=== PATIENT | male | born 1970 | race Caucasian/White ===

== ENCOUNTER 2017-03-15 11:00 | Outpatient (RCR) | payer MEDICAID, SELFPAY ==
--- NOTE | 2017-02-22 14:57 | HP.OTEVAL_ITS ---
Patient's Visit Information ANGLE GARAY is a 46 year old M, referred to Occupational Therapy by Rosalva Guajardo MD,, with a diagnosis of lesion of ulnar nerve right Upper limb. Date of Evaluation: 02/22/17 Occupational Therapist: Sydney Monet, GIO/Aniket, CHT - Subjective Subjective: Pt has a complex hx of right ulnar fx and radial head replacement- after long recovery and slow healing pt was dx with a lesion of right ulnar nerve. Pt underwent right endoscopic cubital tunneel release with release of forearm amd brachial fascia- transpositon of the nerve with fractional lengthening of the flexor carpi ulnaris muscle on 02-03-17. pt states he is feeling good and is hopeful he can regain his strength and return to work and ADLs at a ind. level - Pain right arm 7 - ROM Elbow: right -5/130 left +10/140 Forearm: right WFL left WNL Wrist: right 65/80 left WNL - Strength Director Of Pre[employer] Research: right 40# left 85# Lateral Pinch: right 10# left 16# Tripod Pinch: right 8# left 16# - Sensation Thumb: right 2.83 Index: right 2.83 Middle: right 2.83 Ring: right 2.83 Little: right 2.83 Other Location: plam of hand 2.83 - Hand/Wrist Evaluation Total Score of Pain & Functional Sections: 62 - Goals Goal:: pt will demo a increase in right entry level drafter strength by 20# to retun pt to PLOF with BADLs and IADLS. pt will demo a increase in lateral/tripod pinch by 4 # to increase ind with BADLs and IADLS Goal:: pt will demo a incrase in right elbow flex/ext by 15 degrees to increase pts ind with BADLS and IADLS Goal:: pt will report pain no greater than 3/10 with use of right UE for BADLS and IADLS Goal:: pt will demo understanding of scar mtg by end of 2nd session. Goal:: pt will report complete ind. with BADls and IADLS without lack of ROM or strength limiting pts. - Rehabilitation General Assessment: Pt underwent right endoscopic cubital tunneel release with release of forearm amd brachial fascia- transpositon of the nerve with fractional lengthening of the flexor carpi ulnaris muscle on 02-03-17. pt states he is feeling good and is hopeful he can regain his strength/ROM and return to work and ADLs at a ind. level Rehabilitation Potential: Good - Anticipated Interventions Anticipated Interventions: A/AAROM/PROM, Strengthening, Scar Care, Triggerpoint Release, Modalities, Orthoses, Ergonomic Education - Visit Plan Frequency: 2x /Week Duration: 4 Weeks TEXT: Thank you for the opportunity to evaluate your patient. For Medicare and Medicare HMO plans, please review the plan of care and approve it. It will need to be FAXED BACK to us at [phone] for Medicare purposes. Please let me know if there are questions or concerns regarding this plan of care. Physician Signature: Date:
--- NOTE | 2017-07-06 13:29 | HP.OTDCSUM_ITS ---
HP - OT D/C Summary It has been my pleasure to treat ANGLE GARAY under orders from Rosalva Guajardo MD, for the diagnosis of lesion of ulnar nerve right Upper limb for a total of 5 visit(s). Please see the following information for a summary of their discharge status. - Objective Objective/Function: right radio station manager strength 50#. right lateral 12#. right tripod 12# - Goals Patient Goals: Regain Strength, Decrease Pain, Improve Fine Motor Skills, Use Hand/Wrist/Arm Normally Again, Decrease Tingling/Numbness, Increase ROM, Be More Independent in ADLS Goal:: pt will demo a increase in right radio station manager strength by 20# to retun pt to PLOF with BADLs and IADLS. pt will demo a increase in lateral/tripod pinch by 4 # to increase ind with BADLs and IADLS Goal:: pt will demo a incrase in right elbow flex/ext by 15 degrees to increase pts ind with BADLS and IADLS Goal:: pt will report pain no greater than 3/10 with use of right UE for BADLS and IADLS Goal:: pt will demo understanding of scar mtg by end of 2nd session. Goal:: pt will report complete ind. with BADls and IADLS without lack of ROM or strength limiting pts. - Plan Plan: D/C - D/C Information If there are questions or concerns regarding this patient's occupational therapy , please fell free to call me at [phone]. Thank you for the referral of this patient. Sincerely, Sydney Monet, OTR/L, CHT
== END 2017-03-15 19:00 | disposition home or self-care (01) ==
LOC: OT 11:00
PROVIDERS: Visit Provider Orthopaedic Surgery Hand Surgery
DX: G56.21 Lesion of ulnar nerve, right upper limb (principal)
CPT/HCPCS: 97110; 97140; 97166

== ENCOUNTER 2018-03-29 16:16 | Emergency (ER) | payer MEDICAID, SELFPAY ==
[2018-02-16 12:52] VITALS: BMI 41.6
[2018-03-29 16:17] VITALS: BP 160/93; PULSE 79; RESP 18; TEMP 36.6; O2SAT 98; BMI 38.7
--- NOTE | 2018-03-29 16:55 | CT_ITS ---
STUDY: CT ABDOMEN AND PELVIS WITHOUT CONTRAST REASON FOR EXAM: Male, 47 years old. Left leg pain RADIATION DOSAGE (If Supplied By Facility): CTDIvol = ( 14.80 ) mGy, DLP = ( 818.55 ) mGycm TECHNIQUE: Transaxial images were obtained from the dome of the diaphragm to the symphysis pubis without oral contrast, and without intravenous contrast. Sagittal and coronal images were reconstructed. Individualized dose optimization techniques were used for this CT. COMPARISON: None. FINDINGS: Body wall soft tissues: No acute process. Osseous structures: Scoliosis. Mild multilevel lumbar spondylosis with evidence of foraminal narrowing due to disc bulging on the right at L4-L5. Inferior chest: Lung bases clear, normal distal esophagus. Prominent coronary calcifications of the proximal LAD and diagonal's. Mild of the RCA. No cardiomegaly or effusion. Hepatobiliary: There appears to be minimal gallbladder sludge. No inflammatory features. Nondilated biliary tree. Normal liver parenchyma. Pancreas: No acute process. Spleen: Normal. Adrenal glands: Normal. Urogenital: Normal right kidney, collecting system and ureter. Left hydronephrosis grade 1, no retained calculi in the left kidney. Hydroureter with calculus of the proximal 3rd of the ureter. The calculus measures approximately 6 x 7 mm. Distal to this the ureter is decompressed. Normal urinary bladder, prostate and seminal vesicles. Pelvic floor and sidewalls and retroperitoneum: No mass or adenopathy. Vasculature: Mild atherosclerosis. Stomach: No acute process. Small bowel and mesentery: No acute process. Large bowel: Normal appendix. Unremarkable large bowel and rectum. Free fluid or free air: Left hydronephrosis and proximal hydroureter associated with a 7 x 6 mm calculus of the proximal 3rd of the left ureter. There are no retained calculi within the kidneys. CT/Abdomen/Pelvis without Cont IMPRESSION: Normal unenhanced CT of the abdomen and pelvis. Electronically Signed: David Brownlee MD at 17:37 EST Tel , Service support ,
--- NOTE | 2018-03-29 16:57 | ED.DCSUM_ITS ---
- ER Visit Summary Date of Service: 03/29/18 Chief Complaint: Left-sided abdominal pain History of Present Illness: The patient is a 47 M presenting with left-sided abdominal pain. He states this started last night. He has had nausea with no vomiting. He denies diarrhea or constipation. Denies urinary complaints. Denies fever. He states he had similar symptoms approximately 1 month ago that went away on their own. He states last night the pain radiated to his groin but this has resolved. Denies other complaints. Physical Examination: Vitals are stable. Patient is afebrile. Alert no acute distress. HEENT exam is unremarkable. Neck is supple. Lungs are clear and equal bilaterally. Heart is regular rate and rhythm. Abdomen is soft left lower quadrant tenderness with no rebound or guarding Back: Nontender Extremities are unremarkable. Skin is warm and dry. No focal neurologic deficit. Remainder of exam is unremarkable. Emergency Department Course and Treatment: Patient was given IV fluids, Zofran. CBC shows white count 15.8. Chemistries unremarkable. Urinalysis shows 0-5 white blood cells, 10-[address] abdomen pelvis shows left hydronephrosis and proximal hydroureter secondary to a 7 x 6 mm calculus in the proximal third of the left ureter. There is also no evidence for free fluid or air within the abdomen or pelvis. Patient was given morphine IV. On reevaluation, patient's pain is controlled. Discussed with Dr. Zamora for outpatient follow-up. Advised return to ED if worsening complaints. Disposition: Discharge home Impression: Urolithiasis This note was generated with [employer] dictation software. It may contain incorrect words, spelling, and punctuation that were not noted in review of the chart prior to signing ED Disposition - Plan for ED Patient: Referrals: Bekah Davila [NON-STAFF] -
[2018-03-29] MEDS: 0.9% Normal Saline 1,000 ML 1000 ML IV (17:08)
[2018-03-29] MEDS: Ondansetron 4 MG/2 ML Vial IV (17:08)
[2018-03-29 17:22] LABS: Bacteria 0 SEEN /hpf (None Seen)
[2018-03-29 17:24] LABS: Color, Urine Yellow (Yellow); Glucose, Dipstick Normal (Normal); Ketone-Dipstick 5 mg/dl (Negative); Leukocyte Esterase-Dipstick 25 /ul (Negative); Nitrite-Dipstick Negative (Negative); Occult Blood-Urine 250 /ul (Negative); Protein-Dipstick 15 mg/dl (Negative); Specific Gravity, Urine 1.025 (1.002-1.030); Urine Bilirubin Dipstick Negative (Negative); Urine Clarity Clear (Clear); Urine Urobilinogen 1 mg/dl (Normal)
[2018-03-29 17:36] LABS: Anion Gap 8 (5-15); BUN 18 mg/dL (7-18); BUN/Creat Ratio 13.8 RATIO (10-20); Calcium,Total 8.7 mg/dL (8.5-10.1); Chloride 104 mmol/L (98-107); EST Glomerular Filtration Rate 63 mL/min (>60); Est Glom Filt Rate - Afr Amer 76 mL/min (>60); Estimated Creatinine Clearance 67.96 ml/min; Glucose 107 mg/dL (74-106); Potassium 3.8 mmol/L (3.5-5.1); Sodium Level 139 mmol/L (136-145)
[2018-03-29 17:40] LABS: Absolute Lymphocyte Count 3.05 X10^3/ul (0.83-4.51); Absolute Neutrophil Count 11.2 X10^3/uL (2.0-7.7); Basophil# 0.02 X10^3/uL; Basophil% 0.1 % (0-1); Eosinophil# 0.01 X10^3/uL; Eosinophils% 0.1 % (0-5); Hematocrit 47.6 % (40-54); Hemoglobin 16.3 g/dl (13.0-16.5); Lymphocyte # 3.05 X10^3/ul (4.0); Lymphocyte % 19.3 % (19-41); Mean Corp Hgb Conc 34.2 g/gl (32-36); Mean Corpuscular Hgb 31.5 pg (27.0-32.0); Mean Corpuscular Volume 91.9 fL (80-94); Mean Platelet Vol. 9.5 fl (6.2-12.0); Monocyte# 1.42 X10^3/uL; Neutrophil # 11.24 X10^3/uL (2.7-7.7); Neutrophil % 71.3 % (47-70); Platelet Count 301 K/mm3 (150-450); RBC Distribution Width CV 12.5 % (11.6-14.6); RBC Distribution Width SD 41.9 fl (35.1-43.9); Red Blood Count 5.18 M/mm3 (4.6-6.2); White Blood Count 15.8 K/mm3 (4.4-11.0)
[2018-03-29 17:42] LABS: POSITIVE COUNT NO; POSITIVE DIFFERENTIAL NO; POSITIVE MORPHOLOGY NO
[2018-03-29 17:46] LABS: Mucous, Urine 1+ /hpf (<or=2+); Red Blood Cells-Urine 10-25 SEEN /hpf (0-5); Squamous Epithelial Cells - UA 0-5 SEEN /hpf (0-5); White Blood Cells 0-5 SEEN /hpf (0-5)
[2018-03-29 18:25] VITALS: BP 158/94; PULSE 78; RESP 16; O2SAT 98
[2018-03-29] MEDS: Morphine 4 MG/ML Syringe IV (18:50)
[2018-03-29] MEDS: Ketorolac 15 MG/ML Vial IV (18:50)
--- NOTE | 2018-03-29 20:02 | ED.DEP ---
ED Disposition - Plan for ED Patient: Instructions: ED Stone Renal W Colic Prescriptions: Oxycodone HCl/Acetaminophen [Percocet 5/325] 1 tablet PO Q6H PRN PRN 3 Days #12 tablet PRN Reason: Pain Ondansetron [Zofran Odt] 4 mg PO Q8H PRN PRN #10 tablet PRN Reason: Nausea Referrals: Bekah Davila [NON-STAFF] - Mariusz Zamora MD [STAFF PHYSICIAN] -
[2018-03-29 20:36] VITALS: RESP 16
== END 2018-03-29 20:41 | disposition home or self-care (01) ==
LOC: ED 17:11
PROVIDERS: Emergency Provider Emergency Medicine
DX: N13.2 Hydronephrosis with renal and ureteral calculous obstruction (principal); Z72.0 Tobacco use; Z79.82 Long term (current) use of aspirin; Z79.899 Other long term (current) drug therapy
CPT/HCPCS: 74176; 80048; 81001; 85025; 96361; 96374; 96375; 99283; J7030; A4216; J2405

== ENCOUNTER 2018-10-23 18:06 | Emergency (ER) | payer MEDICAID, SELFPAY ==
[2018-10-23 18:07] VITALS: BP 165/100; PULSE 99; RESP 16; TEMP 36.8; O2SAT 95; BMI 39.8
[2018-10-23] MEDS: 0.9% Normal Saline 1,000 ML 1000 ML IV (19:06)
[2018-10-23] MEDS: Morphine 4 MG/ML Syringe IV (19:08)
[2018-10-23 20:07] LABS: Absolute Lymphocyte Count 4.22 X10^3/uL (0.83-4.51); Absolute Neutrophil Count 6.3 X10^3/uL (2.0-7.7); Basophil# 0.06 X10^3/uL; Basophil% 0.5 % (0-1); Eosinophil# 0.46 X10^3/uL; Eosinophils% 3.8 % (0-5); Hematocrit 45.4 % (40-54); Hemoglobin 15.5 g/dL (13.0-16.5); Lymphocyte # 4.22 X10^3/ul (4.0); Lymphocyte % 35.2 % (19-41); Mean Corp Hgb Conc 34.1 g/dL (32-36); Mean Corpuscular Hgb 31.2 pg (27.0-32.0); Mean Corpuscular Volume 91.3 fL (80-94); Mean Platelet Vol. 9.5 fl (6.2-12.0); Monocyte# 0.86 X10^3/uL; Monocyte% 7.2 % (0-10); NRBC Flagged by Analyzer 0 % (0-5); Neutrophil # 6.34 X10^3/uL (2.7-7.7); Platelet Count 293 K/mm3 (150-450); RBC Distribution Width CV 12.2 % (11.6-14.6); RBC Distribution Width SD 40.4 fl (35.1-43.9); Red Blood Count 4.97 M/mm3 (4.6-6.2)
[2018-10-23 20:09] LABS: Bacteria 0 SEEN /hpf (None Seen); Squamous Epithelial Cells - UA 0 SEEN /hpf (0-5)
[2018-10-23 20:15] LABS: Color, Urine Yellow (Yellow); Glucose, Dipstick Normal (Normal); Ketone-Dipstick Negative (Negative); Leukocyte Esterase-Dipstick 25 /ul (Negative); Nitrite-Dipstick Negative (Negative); Occult Blood-Urine 50 /ul (Negative); Protein-Dipstick 15 mg/dl (Negative); Urine Bilirubin Dipstick Negative (Negative); Urine Clarity Sl. Cloudy (Clear); Urine Urobilinogen Normal (Normal)
[2018-10-23 20:16] VITALS: RESP 16
[2018-10-23 20:21] LABS: Red Blood Cells-Urine 0-5 SEEN /hpf (0-5); White Blood Cells 0-5 SEEN /hpf (0-5)
[2018-10-23 20:22] LABS: Anion Gap 7 (5-15); BUN 17 mg/dL (7-18); Calcium,Total 8.5 mg/dL (8.5-10.1); Chloride 106 mmol/L (98-107); Creatinine, Serum 0.77 mg/dL (0.70-1.30); EST Glomerular Filtration Rate 114 mL/min (>60); Est Glom Filt Rate - Afr Amer 138 mL/min (>60); Estimated Creatinine Clearance 113.51 ml/min; Glucose 106 mg/dL (74-106); Sodium Level 141 mmol/L (136-145)
[2018-10-23 20:22] LABS: Mucous, Urine 2+ /hpf (<or=2+)
--- NOTE | 2018-10-23 20:32 | ED.DCSUM_ITS ---
- ER Visit Summary Date of Service: 10/23/18 Chief Complaint: Kidney stone caught in my penis History of Present Illness: The patient is a 48 M who has no primary care physician or urologist. Reports that he has left flank pain approximately 2 weeks ago. 4 days ago he was urinating and states that his urine just shut off. There is a sharp pain in his penis and the flow decreased. He reports that he now feels as though he is able to empty his bladder. But he feels a foreign body in the glans of his penis. Patient reports that ever since he is a child he has had double shotgun. States that the urine only comes out of 1 of these tubes. Physical Examination: Vitals: Stable. Afebrile. General: Well-nourished and well-developed. Head: Normocephalic atraumatic. Neck: Supple, no lymphadenopathy. No JVD. Nontender. Cardiovascular: Regular rate and rhythm. No murmurs. Respiratory: No respiratory distress. Clear to auscultation bilaterally. Abdominal: Soft, nontender, nondistended, normal bowel sounds. No guarding, rebound, or peritoneal signs. : The urethral meatus is divided in the center by what appears to be well- healed skin. He does have a palpable foreign body in the glands. Back: Nontender. Extremities: Nontender, no edema. Skin: Normal color, no rash. Neurologic: Alert and oriented ?3. Cranial nerves II through XII are intact. Normal strength and sensation. Psych: Normal affect. Test Results: CBC shows a white count of 12.0. Chem-7 is normal. UA is negative. Emergency Department Course and Treatment: Patient was treated with morphine and Zofran. He is resting comfortably. Treatment Plan: The patient was discussed with Dr. Powell. It is unclear why there is this septum in his urethral meatus. She does not feel that trying to remove this is in his best interest. It may cause more strictures and scar tissue. He will be discharged instructions follow-up Dr. Zamora in 1 day for another exam. Return to the emergency department for any worsening symptoms. Disposition: To home in improved and stable condition. Impression: 1. Septated urethral meatus. 2. Foreign body in urethra. This note was generated with [employer] software. It may contain incorrect words, spelling, and punctuation that were not noted in review of the chart prior to signing ED Disposition - Plan for ED Patient: Disposition: Home or Assisted Living Instructions: KIDNEY STONE w/ Colic Prescriptions: Naproxen [Naprosyn] 500 mg PO BID #14 tab Prescription Printed Hydrocodone Bitart/Apap 5-325 [[place] 5MG-325MG] 1 tab PO Q4H PRN PRN 2 Days #10 tab PRN Reason: Pain Prescription Printed Referrals: Mariusz Zamora MD [STAFF PHYSICIAN] - 1-2 Days if not improving
[2018-10-23 21:18] VITALS: BP 147/90; PULSE 80; RESP 16; O2SAT 93
--- NOTE | 2018-10-23 21:20 | ED.RN ---
REVIEWED D/C INSTRUCTIONS, FOLLOW UP CARE, PRESCRIPTIONS, AND S/S THAT WOULD WARRANT A RETURN TO THE ED WITH PT. PT VERBALIZED AN UNDERSTANDING AND DENIES FURTHER QUESTIONS FOR THIS RN. PT SKIN P/W/D, RESP EVEN AND UNLABORED, PT A&O X 3, NO DISTRESS NOTED. PT AMBULATED OUT OF ED, GAIT STEADY.
== END 2018-10-23 21:22 | disposition home or self-care (01) ==
PROVIDERS: Emergency Provider Emergency Medicine
DX: Q64.79 Other congenital malformations of bladder and urethra (principal); T19.0XXA Foreign body in urethra, initial encounter; X58.XXXA Exposure to other specified factors, initial encounter; Y93.9 Activity, unspecified; Y92.9 Unspecified place or not applicable; Y99.9 Unspecified external cause status; R31.9 Hematuria, unspecified; Z72.0 Tobacco use; Z79.82 Long term (current) use of aspirin; Z79.52 Long term (current) use of systemic steroids; Z79.899 Other long term (current) drug therapy
CPT/HCPCS: 80048; 81001; 85025; 96361; 96374; 99283; J7030; A4216

== ENCOUNTER 2020-10-31 14:01 | Emergency (ER) | payer MEDICAID, SELFPAY ==
[2020-10-31 14:02] VITALS: BP 157/113; PULSE 102; RESP 16; TEMP 36.1; O2SAT 95; BMI 43.8
--- NOTE | 2020-10-31 14:40 | CT_ITS ---
STUDY: CT ABDOMEN AND PELVIS WITH CONTRAST REASON FOR EXAM: Male, 50 years old. 5 day history of abdominal pain. RADIATION DOSAGE (If Supplied By Facility): CTDIvol = ( 15.70 ) mGy, DLP = ( 1126.79 ) mGycm TECHNIQUE: Transaxial images were obtained from the dome of the diaphragm to the symphysis pubis without oral contrast. IV 100ML ISOVUE 300 was administered. Sagittal and coronal images were reconstructed. Individualized dose optimization techniques were used for this CT. COMPARISON: Comparison is made with prior study dated 03/29/2018. FINDINGS: The visualized lung bases are unremarkable. Coronary artery calcification. There is decreased attenuation of the liver consistent with steatosis. Normal gallbladder and extrahepatic biliary system. Normal spleen. Normal pancreas. Normal bilateral adrenal glands. Normal right kidney. Normal left kidney. Normal visualized stomach. Normal small intestine. There is evidence of increased markings in the mesenteric fat surrounding the transverse colon anteriorly. A surgical clip is seen at that site. No focal abscess is seen. The appendix is visualized and appears normal. There is scattered atherosclerotic calcification of the abdominal aorta, without a demonstrated aneurysm. Normal inferior vena cava. Normal retroperitoneum. Normal urinary bladder. Normal abdominal wall. There are degenerative changes of the visualized lumbar spine. CT/Abdomen/Pelvis W IV Cont ONLY IMPRESSION: Focal inflammatory changes seen in the mesenteric fat just catheter at and anterior to the transverse colon. A tiny rounded opacities seen most likely representing the possible surgical staple or suture line. Focal inflammatory processes should be ruled out such as epiploic appengitis Electronically Signed: Micky Blanchard MD at 15:31 EDT , Service support ,
--- NOTE | 2020-10-31 14:41 | ED.VIS.GI ---
HPI HPI - GI History of Present Illness Chief Complaint: Abd Pain Narrative Narrative: Patient presents with abdominal pain that he has had for the last 3 days. He complains of abdominal bloating and epigastric to periumbilical pain. He denies any significant past medical history, states that he stopped drinking alcohol years ago. He had ulcers in the past, but this felt more as a burning sensation. At times food makes his pain worse. He denies any previous surgical history of surgeries to his abdomen. States that at urgent care they recommended that he follow-up with a surgeon. He saw Dr. Verma the following day, and was told that he needed upper and lower endoscopy. He has been nauseated and has been dry heaving but has not had actual vomiting. He denies other symptoms. [facility] Medical History (Updated 10/31/20 @ 17:11 by Blaze Castanon MD) History of chest pain History of shortness of breath Home Medications aspirin 81 mg chewable tablet 81 mg PO DAILY 02/16/18 [History Last Taken Unknown] albuterol sulfate 1 puff PO Q6H 10/23/18 [History Last Taken Unknown] tramadol [Ultram] 50 mg PO Q6H PRN #10 tab 10/31/20 [Rx Last Taken Unknown] Allergy/AdvReac Type Severity Reaction Status Date / Time No Known Allergies Allergy Verified 10/31/20 14:40 Surgical History History of mandibular surgery History of surgery on arm Social History (Updated 11/27/19 @ 16:29 by Shaun DEL REAL, PA) Smoking Status: Current every day smoker tobacco type: cigarettes alcohol intake: never ROS ROS ED ROS Narrative Constitutional: No fever, no chills. HEENT: No sore throat. No neck pain. No loss of vision. No rhinorrhea. Cardiovascular: No chest pain. No palpitations. No pedal edema. Respiratory: No cough, no shortness of breath. Abdominal: Epigastric to periumbilical abdominal pain. Positive nausea. Positive dry heaving/vomiting. Endorses abdominal bloating. Genitourinary: No dysuria. No hematuria. Musculoskeletal: No myalgias. No arthralgias. Neurologic: No headaches. No dizziness. No lightheadedness. Skin: No rash. No change in color. Psychiatric: No depression. No anxiety. EXAM Physical Exam Narrative Exam Narrative: Afebrile. Vital signs noted. HEENT: Normocephalic. Atraumatic. PERRL, EOMI. Neck soft and supple. No point tenderness or step off. Cardiovascular: Regular rate and rhythm. No murmurs, rubs, or gallops appreciated. Respiratory: No tachypnea. Lungs clear to auscultation bilaterally. Gastrointestinal: Abdomen soft, obese, tenderness to palpation in epigastrium to periumbilical area, with normoactive bowel sounds. No rebound or guarding. Negative Adames sign. Neurological: Awake. Alert. Nonfocal, nonlateralizing. Skin: No rash. Normal color. No pallor. Musculoskeletal: No pedal edema. Full range of motion extremities. Const Vital Signs: 10/31/20 14:02 Temperature 97.0 F L Temperature Source Temporal Pulse Rate 102 H Respiratory Rate 16 Blood Pressure 157/113 H Blood Pressure Mean 127 Pulse Ox 95 Oxygen Delivery Method Room Air MDM MDM MDM Narrative Medical decision making narrative: Comprehensive work-up was pursued. He was bolused normal saline 1 L intravenously. I will check a CBC, CMP, and lipase. I do feel given his epigastric tenderness that CT imaging is warranted. He has a slightly elevated white count of 11.8 which I think is nonspecific. His electrolyte panel is grossly unremarkable, except alk phos slightly elevated at 126. Urinalysis shows no evidence of infection. Lipase normal at 134. CT of the abdomen and pelvis shows focal inflammatory changes seen in the mesenteric fat and anterior to the transverse colon. There is a tiny rounded opacity seen likely representing possible surgical staple or suture line. However, patient denies any abdominal surgeries or scoping in the past. The focal inflammatory process could be epiploic appendagitis. Patient is tender in the transverse colon in this area. As this is a self-limiting process, I feel he can be discharged safely home with follow-up to his general surgeon. He was told to return with any fever, profuse vomiting, new or worsening symptoms. He is agreeable to the plan. I will write him a prescription for Ultram as his OARRS report is negative. I feel he be discharged safely home with follow-up. Return instructions to the emergency department were reviewed. Disposition is discharged home in stable condition. Lab Data Attestation: I reviewed the patient's lab results. Labs: Laboratory Results - last 24 hr 10/31/20 10/31/20 10/31/20 14:20 14:20 14:48 WBC 11.8 H RBC 5.07 Hgb 15.6 Hct 46.1 MCV 90.9 MCH 30.8 MCHC 33.8 RDW Std Deviation 40.0 RDW Coeff of Judi 12.0 Plt Count 387 MPV 9.3 Immature Gran % (Auto) 0.400 Neut % (Auto) 67.8 Lymph % (Auto) 23.0 [place] % (Auto) 6.8 Eos % (Auto) 1.5 Baso % (Auto) 0.5 Absolute Neuts (auto) 8.0 H Absolute Lymphs (auto) 2.71 Nucleated RBC % 0 Sodium 139 Potassium 4.4 Chloride 104 Carbon Dioxide 29.0 Anion Gap 6 BUN 12 Creatinine 0.74 Estim Creat Clear Calc 111.66 Est GFR (MDRD) Af Amer 144 Est GFR (MDRD) Non-Af 119 BUN/Creatinine Ratio 16.2 Glucose 90 Calcium 9.1 Total Bilirubin 0.40 AST 21 ALT 42 Alkaline Phosphatase 126 H Total Protein 7.8 Albumin 2.9 L Globulin 4.9 H Albumin/Globulin Ratio 0.6 L Lipase 134 Urine Color Yellow Urine Clarity Sl. Cloudy Urine pH 7.0 Ur Specific [place] 1.010 Urine Protein Negative Urine Glucose (UA) Normal Urine Ketones Negative Urine Occult Blood Negative Urine Nitrite Negative Urine Bilirubin Negative Urine Urobilinogen Normal Ur Leukocyte Esterase Negative Urine RBC 0 SEEN Urine WBC 0 SEEN Ur Squamous Epith Cells 0-5 SEEN Urine Bacteria 0 SEEN Urine Mucus 0 SEEN Radiography Diagnostic Testing: Radiology Impression Abdomen/Pelvis CT 10/31/20 14:40 IMPRESSION: Focal inflammatory changes seen in the mesenteric fat just catheter at and anterior to the transverse colon. A tiny rounded opacities seen most likely representing the possible surgical staple or suture line. Focal inflammatory processes should be ruled out such as epiploic appengitis Electronically Signed: Micky Blanchard MD at 15:31 EDT , Service support , Discharge Plan Triage Chief Complaint: Abd Pain ED Provider: Blaze Castanon Dx/Rx/DC Orders Clinical Impression: Abdominal pain, Epiploic appendagitis Instructions: Medicine for Pain, ED Abdominal Pain Unkn Cause Male... Prescriptions: New tramadol [Ultram] 50 mg tablet 50 mg PO Q6H PRN (Reason: pain) Qty: 10 RF: 0 No Action aspirin 81 mg tablet,chewable 81 mg PO DAILY RF: 0 albuterol sulfate 18 GM HFA aerosol inhaler 1 puff PO Q6H RF: 0 Primary Care Provider: Care Physician,No Primary Referrals: Jose Verma MD [STAFF PHYSICIAN] - 11/05/20 Care Physician,No Primary [Primary Care Provider] - Disposition Disposition: Home, Self Care
[2020-10-31] MEDS: 0.9% Normal Saline 1,000 ML 1000 ML IV (14:46)
[2020-10-31 14:53] LABS: Bacteria 0 SEEN /hpf (None Seen); Mucous, Urine 0 SEEN /hpf (<or=2+); Red Blood Cells-Urine 0 SEEN /hpf (0-5); White Blood Cells 0 SEEN /hpf (0-5)
[2020-10-31 15:01] LABS: Color, Urine Yellow (Yellow); Glucose, Dipstick Normal (Normal); Ketone-Dipstick Negative (Negative); Leukocyte Esterase-Dipstick Negative /ul (Negative); Nitrite-Dipstick Negative (Negative); Occult Blood-Urine Negative /ul (Negative); Protein-Dipstick Negative (Negative); Urine Bilirubin Dipstick Negative (Negative); Urine Clarity Sl. Cloudy (Clear); Urine Urobilinogen Normal (Normal)
[2020-10-31 15:05] LABS: Absolute Lymphocyte Count 2.71 X10^3/uL (0.83-4.51); Basophil# 0.06 X10^3/uL; Basophil% 0.5 % (0-1); Eosinophil# 0.18 X10^3/uL; Eosinophils% 1.5 % (0-5); Hematocrit 46.1 % (40-54); Hemoglobin 15.6 g/dL (13.0-16.5); Lymphocyte # 2.71 X10^3/ul (0.83-4.51); Mean Corp Hgb Conc 33.8 g/dL (32-36); Mean Corpuscular Hgb 30.8 pg (27.0-32.0); Mean Corpuscular Volume 90.9 fL (80-94); Mean Platelet Vol. 9.3 fl (6.2-12.0); Monocyte% 6.8 % (0-10); NRBC Flagged by Analyzer 0 % (0-5); Neutrophil # 7.98 X10^3/uL (2.7-7.7); Neutrophil % 67.8 % (47-70); Platelet Count 387 K/mm3 (150-450); Red Blood Count 5.07 M/mm3 (4.6-6.2); White Blood Count 11.8 K/mm3 (4.4-11.0)
[2020-10-31 15:06] LABS: Squamous Epithelial Cells - UA 0-5 SEEN /hpf (0-5)
[2020-10-31 15:14] LABS: ALB/GLOB Ratio 0.6 RATIO (0.9-2.4); AST(SGOT) 21 U/L (15-37); Alanine Aminotransfer ALT/SGPT 42 U/L (16-61); Albumin, Serum 2.9 g/dL (3.2-5.0); Alkaline Phosphatase 126 U/L (45-117); Anion Gap 6 (5-15); BUN 12 mg/dL (7-18); BUN/Creat Ratio 16.2 RATIO (10-20); Calcium,Total 9.1 mg/dL (8.5-10.1); Chloride 104 mmol/L (98-107); Creatinine, Serum 0.74 mg/dL (0.70-1.30); EST Glomerular Filtration Rate 119 mL/min (>60); Est Glom Filt Rate - Afr Amer 144 mL/min (>60); Estimated Creatinine Clearance 111.66 ml/min; Globulin 4.9 g/dL (2.2-4.2); Glucose 90 mg/dL (74-106); Lipase 134 U/L (73-393); Potassium 4.4 mmol/L (3.5-5.1); Protein, Total 7.8 g/dL (6.4-8.2); Sodium Level 139 mmol/L (136-145)
[2020-10-31 17:41] VITALS: PULSE 89; RESP 16; O2SAT 94
== END 2020-10-31 17:45 | disposition home or self-care (01) ==
PROVIDERS: Emergency Provider Emergency Medicine
DX: K63.89 Other specified diseases of intestine (principal); F17.210 Nicotine dependence, cigarettes, uncomplicated; Z79.82 Long term (current) use of aspirin
CPT/HCPCS: 74177; 80053; 81001; 83690; 85025; 96360; 96361; 99284; J7030; Q9967; A4216

== ENCOUNTER 2021-03-23 21:18 | Emergency (ER) | payer MEDICAID, SELFPAY ==
[2021-03-23 21:19] VITALS: BP 158/114; PULSE 96; RESP 18; TEMP 36.6; O2SAT 98; BMI 41.0
--- NOTE | 2021-03-23 22:06 | CT_ITS ---
INDICATION: chest pain EXAMINATION: CTA Chest WO/W Contrast Injection TECHNIQUE: Helically acquired images were obtained of the chest following administration of IV contrast. A radiation dose optimization technique was used for this scan. 3D postprocessing images including MIPS were reviewed. IV Contrast dosage and agent: IV 100mL Isovue-370 COMPARISON: None. FINDINGS: Lungs: Mild diffuse bronchial wall thickening. Mediastinum: The cardiomediastinal silhouette is not enlarged. No mediastinal, hilar or axillary adenopathy. Mild aortic arch and coronary artery calcifications. No obvious filling defect seen within the visualized pulmonary arteries. Pleura: Unremarkable Bones/Soft tissues: Mild scattered degenerative changes of the visualized spine. Upper abdomen: No visualized abnormalities in the upper abdomen. CT/CTA Chest W/WO Contrast IMPRESSION: No evidence of acute pulmonary emboli to the segmental level. Mild diffuse bronchial wall thickening could be infectious or inflammatory in etiology. Electronically Signed: Reagan Palencia MD at 22:59 EST ,
--- NOTE | 2021-03-23 22:15 | EX.ED.DYSGE1 ---
HPI History of Present Illness Chief Complaint: Fall Informant: patient Narrative Narrative: 50-year-old male states about 3 weeks ago he slipped and fell on the ice. He injured to the left lower anterior ribs. He states about a week went by and he was seen in urgent care had negative x-rays. States he did a virtual visit with his doctor was given some [place] for which she is only taken 4 of 12. He states over the past several days has had increase in the pain and now notes cough with some sputum production. No fever. He denies any hematuria. No abdominal pain. [facility] Medical History (Updated 03/23/21 @ 23:[address] Jose Shirley DO) History of chest pain History of shortness of breath Home Medications aspirin 81 mg chewable tablet 81 mg PO DAILY 02/16/18 [History Last Taken Unknown] albuterol sulfate 1 puff PO Q6H 10/23/18 [History Last Taken Unknown] tramadol [Ultram] 50 mg PO Q6H PRN #10 tab 10/31/20 [Rx Last Taken Unknown] Allergy/AdvReac Type Severity Reaction Status Date / Time No Known Allergies Allergy Verified 03/23/21 21:22 Surgical History History of mandibular surgery History of surgery on arm Social History Smoking Status: Current every day smoker tobacco type: cigarettes alcohol intake: never ROS ROS ED Constitutional Constitutional ED: Denies chills, fever(s) or weight loss Eyes Eyes: Denies change in vision or diplopia ENT ENT ED: Denies ear pain, rhinorrhea or sore throat Cardiovascular Cardiovascular: Reports chest pain; Denies orthopnea, palpitations or racing heartbeat Respiratory/Chest Respiratory/Chest: Reports cough and sputum; Denies dyspnea or orthopnea Gastrointestinal Gastrointestinal: Denies abdominal pain, diarrhea, nausea or vomiting Genitourinary Genitourinary ED: Denies dysuria, hematuria or urinary frequency Musculoskeletal Musculoskeletal: Denies arthralgias or myalgias Integumentary Denies abscess or rash Neurologic Neurologic: Denies headache(s) or weakness Psychiatric Psychiatric: Denies anxiety, depression, suicidal ideation or suicidal thoughts Endocrine Endocrinology: Denies polydipsia, polyphagia or polyuria Allergic/Immunologic Allergic/Immunologic ED: Denies mouth swelling, tongue swelling or urticaria EXAM Physical Exam Const Vital Signs: 03/23/21 21:19 03/23/21 22:22 Temperature 97.9 F Temperature Source Temporal Pulse Rate 96 Respiratory Rate 18 Respiratory Effort Normal Non-Labored Respiratory Depth Normal Respiratory Pattern Normal Blood Pressure 158/114 H Blood Pressure Mean 128 Pulse Ox 98 Oxygen Delivery Method Room Air Room Air Positive well nourished, well developed and obese General Appearance ED: well developed Nutritional Appearance: obese HEENT Reports normocephalic, head/scalp atraumatic, TM's clear and moist mucous membranes Negative for trauma Tympanic Membrane ED: Yes TM's clear Eyes PERRL and EOMs intact bilaterally Neck no lymphadenopathy, supple and no JVD Chest Wall Chest Narrative: Tender palpation over the anterior lower left chest wall. No obvious deformity. No ecchymosis is noted. No rashes. Resp normal respiratory effort and clear to auscultation bilaterally Cardio regular rate, regular rhythm and no murmurs GI normal to inspection, nondistended, normoactive bowel sounds and non-tender Palpation: soft Back/Spine no CVA tenderness and normal ROM Extremity normal to inspection General Extremety ED: Negative for edema General Extremity: Negative for edema Neuro oriented x3 and CN's II-XII intact bilaterally Sensorium / Orientation: alert Motor Exam: strength 5/5 throughout Psych mental status grossly normal Mood & Affect: Negative for depressed or tearful Skin no rashes or lesions noted and no wounds MDM MDM MDM Narrative Medical decision making narrative: CBC and BMP are negative. CTA of the chest was obtained which does not demonstrate any acute pulmonary emboli. There was no evidence of pneumonia. On my review I see an area of the left lower costochondral border that appears to have a crack in it. I think this is probably the cause of his pain. We talked about home treatment and explained to him that he will have pain for several weeks. He is comfortable with her plan Lab Data Attestation: I reviewed the patient's lab results. Labs: Laboratory Results - last 24 hr 03/23/21 03/23/21 22:19 22:19 WBC 12.3 H RBC 5.06 Hgb 16.1 Hct 45.7 MCV 90.3 MCH 31.8 MCHC 35.2 RDW Std Deviation 45.0 H RDW Coeff of Judi 13.4 Plt Count 250 MPV 10.0 Immature Gran % (Auto) 0.400 Neut % (Auto) 65.6 Lymph % (Auto) 26.1 [place] % (Auto) 6.3 Eos % (Auto) 1.2 Baso % (Auto) 0.4 Absolute Neuts (auto) 8.0 H Absolute Lymphs (auto) 3.20 Nucleated RBC % 0 Platelet Estimate ADEQUATE RBC Morphology N CHROM Anisocytosis RARE Macrocytosis RARE Sodium 138 Potassium 3.7 Chloride 103 Carbon Dioxide 28.0 Anion Gap 7 BUN 14 Creatinine 0.84 Estim Creat Clear Calc 101.79 Est GFR (MDRD) Af Amer 124 Est GFR (MDRD) Non-Af 102 BUN/Creatinine Ratio 16.6 Glucose 110 H Calcium 8.8 Radiography Diagnostic Testing: Clinical Impression(s) from Imaging Studies Chest CTA 03/23/21 22:06 IMPRESSION: No evidence of acute pulmonary emboli to the segmental level. Mild diffuse bronchial wall thickening could be infectious or inflammatory in etiology. Electronically Signed: Reagan Palencia MD at 22:59 EST , Discharge Plan Triage Chief Complaint: Fall ED Provider: Jose Shirley Dx/Rx/DC Orders Clinical Impression: Costochondral separation Instructions: ED Rib Fracture Prescriptions: No Action aspirin 81 mg tablet,chewable 81 mg PO DAILY RF: 0 albuterol sulfate 18 GM HFA aerosol inhaler 1 puff PO Q6H RF: 0 tramadol [Ultram] 50 mg tablet 50 mg PO Q6H PRN (Reason: pain) Qty: 10 RF: 0 Primary Care Provider: Matteo Chavez Referrals: Matteo Chavez MD [Primary Care Provider] - As Needed Activity Restrictions/Additional Instructions: As discussed I would recommend 600 to 800 mg of ibuprofen every 8 hours with food. You may continue to use your [place]. Please use a throw pillow to help support the chest when you are coughing go to move. As discussed at the least 2 times per hour please take a deep breath while awake. This will help keep pneumonia from setting in. Disposition Disposition: Home, Self Care
[2021-03-23 22:29] LABS: Basophil# 0.05 X10^3/uL; Basophil% 0.4 % (0-1); Eosinophil# 0.15 X10^3/uL; Eosinophils% 1.2 % (0-5); Hematocrit 45.7 % (40-54); Hemoglobin 16.1 g/dL (13.0-16.5); Lymphocyte % 26.1 % (19-41); Mean Corp Hgb Conc 35.2 g/dL (32-36); Mean Corpuscular Hgb 31.8 pg (27.0-32.0); Mean Corpuscular Volume 90.3 fL (80-94); Monocyte# 0.77 X10^3/uL; Monocyte% 6.3 % (0-10); NRBC Flagged by Analyzer 0 % (0-5); Neutrophil # 8.04 X10^3/uL (2.7-7.7); Neutrophil % 65.6 % (47-70); POSITIVE COUNT YES; Platelet Count 250 K/mm3 (150-450); RBC Distribution Width CV 13.4 % (11.6-14.6); Red Blood Count 5.06 M/mm3 (4.6-6.2); White Blood Count 12.3 K/mm3 (4.4-11.0)
[2021-03-23 22:42] LABS: Anion Gap 7 (5-15); BUN 14 mg/dL (7-18); BUN/Creat Ratio 16.6 RATIO (10-20); Calcium,Total 8.8 mg/dL (8.5-10.1); Chloride 103 mmol/L (98-107); Creatinine, Serum 0.84 mg/dL (0.70-1.30); EST Glomerular Filtration Rate 102 mL/min (>60); Est Glom Filt Rate - Afr Amer 124 mL/min (>60); Estimated Creatinine Clearance 101.79 ml/min; Glucose 110 mg/dL (74-106); Potassium 3.7 mmol/L (3.5-5.1); Sodium Level 138 mmol/L (136-145)
[2021-03-23 22:51] LABS: Differential Indicated SCAN CRITERIA MET
[2021-03-23 22:52] LABS: Anisocytosis RARE; Macrocytosis RARE; Platelet Estimate ADEQUATE (ADEQ); Red Cell Morphology N CHROM NORMAL (NORM C&C)
[2021-03-23 23:20] VITALS: BP 163/100; PULSE 79; RESP 16; O2SAT 96
== END 2021-03-23 23:20 | disposition home or self-care (01) ==
PROVIDERS: Emergency Provider Emergency Medicine; PCP Family Medicine; Visit Provider Emergency Medicine
DX: S23.41XA Sprain of ribs, initial encounter (principal); Z68.41 Body mass index [BMI] 40.0-44.9, adult; W00.0XXA Fall on same level due to ice and snow, initial encounter; E66.9 Obesity, unspecified; F17.210 Nicotine dependence, cigarettes, uncomplicated; Z79.82 Long term (current) use of aspirin
CPT/HCPCS: 71275; 80048; 85025; 99284; Q9967; A4216

== ENCOUNTER 2021-09-26 15:15 | Inpatient (IN) | payer MEDICAID, SELFPAY ==
[2021-09-26 15:16] VITALS: BP 143/100; PULSE 101; RESP 16; TEMP 36.5; O2SAT 97; BMI 38.6
--- NOTE | 2021-09-26 15:39 | CT_ITS ---
STUDY: CT ABDOMEN AND PELVIS WITH CONTRAST REASON FOR EXAM: Male, 51 years old. abd pain -- IV PO Contrast RADIATION DOSAGE (If Supplied By Facility): CTDIvol = ( 17.04 ) mGy, DLP = ( 1212.45 ) mGycm TECHNIQUE: Transaxial images were obtained from the dome of the diaphragm to the symphysis pubis without oral contrast. Oral and amp; IV Gastrografin and amp; 100mL Isovue-370 was administered. Sagittal and coronal images were reconstructed. Individualized dose optimization techniques were used for this CT. COMPARISON: None. FINDINGS: The visualized lung bases are unremarkable. The visualized portions of the heart are within normal limits. Normal liver. Normal gallbladder and extrahepatic biliary system. Normal spleen. Normal pancreas. Normal bilateral adrenal glands. Normal right kidney. Normal left kidney. Normal visualized stomach. Mildly distended small bowel and colon proximal to the mid transverse colon where there is concentric thickening of the escalera of the mid to distal transverse colon and stranding in the fat consistent with nonspecific colitis. The appendix is visualized and appears normal. Minor atherosclerotic changes of the aorta without evidence for aneurysm. Normal inferior vena cava. Normal retroperitoneum. Normal urinary bladder. There is a fluid-filled density measuring 4.4 x 2.45 x 4 cm in the anterior pelvic wall fat with mild stranding in the fat possibly representing small infected hematoma or evolving abscess Small fat-containing umbilical hernia.. Lumbar spine demonstrates degenerative changes. CT/Abdomen/Pelvis WITH Contrast IMPRESSION: Findings consistent with nonspecific colitis involving the transverse colon with proximal bowel distention possibly representing proximal obstruction. This also could represent spasm in association with ileus. Clinical correlation recommended There is also a questionable infected hematoma or evolving abscess within the anterior pelvic wall fat just cephalad to small fat-containing umbilical hernia. Clinical correlation recommended Electronically Signed: Matteo Banuelos MD at 18:44 EDT ,
--- NOTE | 2021-09-26 15:41 | EDS_ITS ---
HPI History of Present Illness Chief Complaint: Abd Pain Informant: patient Onset/Context/Timing Onset: Month(s) Context: Gradual Onset Timing: Waxes and wanes Current Severity: Moderate Maximum Severity: Moderate Narrative Narrative: Patient present secondary to abdominal pain. He has been having food sensitivity for nearly a year. He states he seems to have it narrowed down to when he eats red meat he will get inflammation in his abdomen. He recently was on vacation and 2 different times inadvertently ate red meat. Has been having increased abdominal pain over the past couple of days because of this. He does report having constipation and states he is only able to get a small amount out over the last day or 2. He went to urgent care and there was concern for bowel obstruction and he was sent to the emergency room. He denies any prior abdominal surgeries. He did have an EGD and colonoscopy last year. [facility] Medical History Kidney stone Home Medications aspirin 81 mg chewable tablet 81 mg PO DAILY 02/16/18 [History Last Taken Unknown] albuterol sulfate 90 mcg/actuation aerosol inhaler 1 puff PO Q6H Check with primary doctor 10/23/18 [History Last Taken Unknown] tramadol 50 mg tablet (Ultram) 50 mg PO Q6H PRN pain #10 tabs 10/31/20 [Rx Last Taken Unknown] Allergy/AdvReac Type Severity Reaction Status Date / Time No Known Allergies Allergy Verified 09/26/21 15:16 Surgical History History of mandibular surgery History of surgery on arm Social History Smoking Status: Current every day smoker tobacco type: cigarettes alcohol intake: never ROS ROS ED Constitutional Constitutional ED: Denies chills or fever(s) Eyes Eyes: Denies change in vision or discharge from eye(s) ENT ENT ED: Denies discharge from eye(s), rhinorrhea or sore throat Cardiovascular Cardiovascular: Denies chest pain or palpitations Respiratory/Chest Respiratory/Chest: Reports cough and other Details: Wheezing ; Denies dyspnea Gastrointestinal Gastrointestinal: Reports abdominal pain, constipation and nausea; Denies diarrhea or vomiting Genitourinary Genitourinary ED: Denies difficulty urinating or dysuria Musculoskeletal Musculoskeletal: Denies back pain or extremity pain Integumentary Denies Abrasions or rash Neurologic Neurologic: Denies headache(s) or weakness Allergic/Immunologic Allergic/Immunologic ED: Denies lip swelling or urticaria EXAM Physical Exam Const Vital Signs: 09/26/21 15:16 09/26/21 17:29 Temperature 97.7 F L Temperature Source Temporal Pulse Rate 101 H 88 Respiratory Rate 16 14 Blood Pressure 143/100 H 134/86 H Blood Pressure Mean 114 102 Pulse Ox 97 97 Oxygen Delivery Method Room Air Room Air Positive well nourished and well developed General Appearance ED: well developed HEENT Reports normocephalic and head/scalp atraumatic Eyes PERRL and EOMs intact bilaterally Neck supple Chest Wall inspection of chest normal and palpation of chest normal Resp normal respiratory effort Resp Narrative: Mild scattered expiratory wheezes. Cardio regular rate and regular rhythm GI GI Narrative: Periumbilical and left upper quadrant tenderness to palpation. Hypoactive but present bowel sounds noted. Palpation: soft Extremity normal to inspection Neuro oriented x3 and no sensory deficits noted Sensorium / Orientation: alert Motor Exam: strength 5/5 throughout Psych mental status grossly normal Skin no rashes or lesions noted MDM MDM MDM Narrative Medical decision making narrative: Patient given morphine and Zofran for pain and nausea. IV fluids given. Lab work obtained along with CT scan of the abdomen pelvis with contrast. Lab Data Attestation: I reviewed the patient's lab results. Labs: Laboratory Results - last 24 hr 09/26/21 09/26/21 16:10 16:10 WBC 11.7 H RBC 5.18 Hgb 16.0 Hct 46.6 MCV 90.0 MCH 30.9 MCHC 34.3 RDW Std Deviation 41.4 RDW Coeff of Judi 12.4 Plt Count 456 H MPV 8.9 Immature Gran % (Auto) 0.500 Neut % (Auto) 72.7 H Lymph % (Auto) 16.9 L [place] % (Auto) 8.9 Eos % (Auto) 0.7 Baso % (Auto) 0.3 Absolute Neuts (auto) 8.5 H Absolute Lymphs (auto) 1.98 Nucleated RBC % 0 Sodium 137 Potassium 3.5 Chloride 102 Carbon Dioxide 29.0 Anion Gap 6 BUN 18 Creatinine 0.75 Estim Creat Clear Calc 112.73 Est GFR (MDRD) Af Amer 140 Est GFR (MDRD) Non-Af 116 BUN/Creatinine Ratio 23.9 H Glucose 129 H Calcium 8.9 Total Bilirubin 0.90 Direct Bilirubin 0.46 H AST 22 ALT 38 Alkaline Phosphatase 107 Total Protein 7.9 Albumin 2.9 L Globulin 5.0 H Lipase 79 Radiography Diagnostic Testing: Clinical Impression(s) from Imaging Studies Abdomen/Pelvis CT 09/26/21 15:39 IMPRESSION: Findings consistent with nonspecific colitis involving the transverse colon with proximal bowel distention possibly representing proximal obstruction. This also could represent spasm in association with ileus. Clinical correlation recommended There is also a questionable infected hematoma or evolving abscess within the anterior pelvic wall fat just cephalad to small fat-containing umbilical hernia. Clinical correlation recommended Electronically Signed: Matteo Banuelos MD at 18:44 EDT Reading Location ID and State: [facility] / [place] , Service support , Treatment and Re-Evaluation Narrative: CBC was mild elevation of white count at 11.7. 72% neutrophils. He does appear the patient tends to run a slightly elevated white count. Chemistry studies largely unremarkable. LFTs and lipase unremarkable. CT scan of the abdomen pelvis reveals colitis involving the transverse colon and proximal bowel distention possibly representing partial obstruction. He also has a questionable infected hematoma or evolving abscess in the anterior pelvic wall fat just above the umbilicus. Repeat examination patient continues to have pain to both of these areas. No overlying skin changes noted. He reports that he has not passed gas or had a bowel movement today, although is unsure if he may be able to now. I spoke with Dr. Aldrich, on-call for surgery. She reviewed the images and will admit the patient for IV antibiotics and bowel rest. He is given a dose of Zosyn at this time. Discharge Plan Triage Chief Complaint: Abd Pain ED Provider: Latha Mckinney Dx/Rx/DC Orders Clinical Impression: Colitis Primary Care Provider: Matteo Chavez Disposition Disposition: [facility]
[2021-09-26] MEDS: Morphine 4 MG/ML Syringe IV ×2 (16:09→22:04)
[2021-09-26] MEDS: Ondansetron 4 MG/2 ML Vial IV (16:09)
[2021-09-26] MEDS: 0.9% Normal Saline 1,000 ML 150 ML IV (16:09)
[2021-09-26 16:25] LABS: Absolute Lymphocyte Count 1.98 X10^3/uL (0.83-4.51); Absolute Neutrophil Count 8.5 X10^3/uL (2.0-7.7); Basophil# 0.04 X10^3/uL; Basophil% 0.3 % (0-1); Eosinophil# 0.08 X10^3/uL; Eosinophils% 0.7 % (0-5); Hematocrit 46.6 % (40-54); Lymphocyte # 1.98 X10^3/ul (0.83-4.51); Lymphocyte % 16.9 % (19-41); Mean Corp Hgb Conc 34.3 g/dL (32-36); Mean Corpuscular Hgb 30.9 pg (27.0-32.0); Mean Platelet Vol. 8.9 fl (6.2-12.0); Monocyte# 1.04 X10^3/uL; Monocyte% 8.9 % (0-10); NRBC Flagged by Analyzer 0 % (0-5); Neutrophil # 8.53 X10^3/uL (2.7-7.7); Neutrophil % 72.7 % (47-70); Platelet Count 456 K/mm3 (150-450); RBC Distribution Width CV 12.4 % (11.6-14.6); RBC Distribution Width SD 41.4 fl (35.1-43.9); Red Blood Count 5.18 M/mm3 (4.6-6.2); White Blood Count 11.7 K/mm3 (4.4-11.0)
[2021-09-26 16:43] LABS: AST(SGOT) 22 U/L (15-37); Alanine Aminotransfer ALT/SGPT 38 U/L (16-61); Albumin, Serum 2.9 g/dL (3.2-5.0); Alkaline Phosphatase 107 U/L (45-117); Anion Gap 6 (5-15); BUN 18 mg/dL (7-18); BUN/Creat Ratio 23.9 RATIO (10-20); Bilirubin, Direct 0.46 mg/dL (0.00-0.30); Calcium,Total 8.9 mg/dL (8.5-10.1); Chloride 102 mmol/L (98-107); Creatinine, Serum 0.75 mg/dL (0.70-1.30); EST Glomerular Filtration Rate 116 mL/min (>60); Est Glom Filt Rate - Afr Amer 140 mL/min (>60); Estimated Creatinine Clearance 112.73 ml/min; Glucose 129 mg/dL (74-106); Lipase 79 U/L (73-393); Potassium 3.5 mmol/L (3.5-5.1); Protein, Total 7.9 g/dL (6.4-8.2); Sodium Level 137 mmol/L (136-145)
[2021-09-26 17:29] VITALS: BP 134/86; PULSE 88; RESP 14; O2SAT 97
[2021-09-26 19:35] VITALS: BP 134/78; PULSE 94; RESP 16; TEMP 37.2; O2SAT 97
[2021-09-26 19:36] VITALS: BP 138/78; PULSE 94; RESP 16; TEMP 37.2; O2SAT 97
[2021-09-26 21:08] VITALS: BMI 38.7
[2021-09-26 21:19] VITALS: BP 153/97; PULSE 73; RESP 16; TEMP 37.2; O2SAT 94
[2021-09-26] MEDS: 0.9% Normal Saline 1,000 ML 125 ML IV (22:01)
[2021-09-26] MEDS: Ketorolac 15 MG/ML Vial IV (22:01)
[2021-09-27 04:00] VITALS: BP 134/90; PULSE 65; RESP 18; TEMP 36.8; O2SAT 94
[2021-09-27] MEDS: 0.9% Normal Saline 1,000 ML 125 ML IV ×3 (04:11→20:35)
[2021-09-27] MEDS: Morphine 4 MG/ML Syringe IV (04:19)
--- NOTE | 2021-09-27 05:30 | RAD_ITS ---
HISTORY: abdominal pain. TECHNIQUE: XR Abdomen 1 View. COMPARISON: CT prior day. FINDINGS: BOWEL GAS PATTERN: Residual contrast in the gastric fundus. Multiple dilated small bowel loops. Interval passage of oral contrast into the splenic flexure and descending colon FREE AIR: Not assessed on supine view. BONES AND SOFT TISSUES: Mild lumbar dextroscoliosis. Vertebral contrast in the bladder. RAD/Abdomen Single View IMPRESSION: Persistent dilated small bowel loops with interval passage of oral contrast into the descending colon, likely partial bowel obstruction. Electronically Signed: Jana Shore MD at 9:43 EDT ,
[2021-09-27] MEDS: Ketorolac 15 MG/ML Vial IV ×3 (05:46→21:43)
--- NOTE | 2021-09-27 08:44 | HP.PCM.SX_ITS ---
HPI - General General Date of Admission: 09/26/21 Date of Service: 09/27/21 HPI Narrative ANGLE GARAY, is a 51 M who presents generalized abdominal pain. He states that he has had abdominal pain episodically for the past year. He states that this particular episode of pain has been going on for the past week. He also states that he feels bloated and has had constipation and obstipation - does not recall last flatus passed. He has nausea, but denies emesis. He states that he has numerous food allergies - most concerning for red meat and states that he may have had some in the past week that triggered this episode. My review of the patient's records reveal that patient has seen an allergies and does not have allergies to red meat. Workup in the ED: WBC is 11.7 - patient has had elevated WBC on record in the past, there is a slight shift of the differential. CT scan - reviewed by me - distention of small bowel and right colon to mid transverse where the radiologist states there is wall thickening possibly representing colitis, also about a 4 cm anterior wall lesion is noted - possibly abscess/hematoma, patient also has umbilical hernia with fatty tissue in it Of note: patient had a CT scan in Oct 2020 with findings of epiploic appendagit is. This morning - patient rates his pain as 6-7 out of 10 on a scale of 1-10. KUB this morning reveals bowel contrast is in the right and left colon. PFSH Medical History Abnormal CT scan, gastrointestinal tract Generalized abdominal pain Kidney stone Smoker Home Medications aspirin 81 mg chewable tablet 81 mg PO DAILY 02/16/18 [History Last Taken Unknown] tramadol 50 mg tablet (Ultram) 50 mg PO Q6H PRN pain #10 tabs 10/31/20 [Rx Last Taken Unknown] naproxen 500 mg tablet 500 mg PO BID PRN Pain 09/26/21 [History Last Taken Unknown] Allergy/AdvReac Type Severity Reaction Status Date / Time No Known Allergies Allergy Verified 09/26/21 15:16 Surgical History History of mandibular surgery History of surgery on arm Social History Smoking Status: Current every day smoker tobacco type: cigarettes alcohol intake: never ROS Constitutional Constitutional: Denies fever(s) or weight loss Cardiovascular Cardiovascular: Denies chest pain at rest Respiratory/Chest Respiratory/Chest: Denies dyspnea or productive cough Gastrointestinal Gastrointestinal: Reports other Details: see HPI Genitourinary Genitourinary: Denies dysuria or hematuria Musculoskeletal Musculoskeletal: Denies abnormal gait or limited range of motion Integumentary Integumentary: Denies jaundice Neurologic Neurologic: Denies dizziness or loss of vision Endocrine Endocrinology: Denies palpitations Hematologic/Lymphatic Hematologic/Lymphatic: Denies easy bleeding or easy bruising Vital Signs Vital Signs Vital Signs: 09/26/21 15:16 09/26/21 17:29 09/26/21 19:35 Temperature 97.7 F L 98.9 F Temperature Source Temporal Temporal Pulse Rate 101 H 88 94 Pulse Strength Respiratory Rate 16 14 16 Respiratory Effort Respiratory Depth Respiratory Pattern Blood Pressure 143/100 H 134/86 H 134/78 H Blood Pressure Mean 114 102 96 Blood Pressure Source Blood Pressure Position Blood Pressure Location Pulse Ox 97 97 97 Oxygen Delivery Method Room Air Room Air Room Air 09/26/21 19:36 09/26/21 21:19 09/26/21 21:20 Temperature 98.9 F 98.9 F Temperature Source Temporal Oral Pulse Rate 94 73 Pulse Strength Respiratory Rate 16 16 Respiratory Effort Normal Non-Labored Respiratory Depth Normal Respiratory Pattern Normal Blood Pressure 138/78 H 153/97 H Blood Pressure Mean 98 115 Blood Pressure Source Monitor Blood Pressure Position Semi-Fowlers Blood Pressure Location Left Arm Pulse Ox 97 94 Oxygen Delivery Method Room Air Room Air Room Air 09/26/21 22:00 09/27/21 04:00 09/27/21 04:00 Temperature 98.2 F Temperature Source Oral Pulse Rate 65 Pulse Strength Normal (2+) Respiratory Rate 18 Respiratory Effort Normal Non-Labored Respiratory Depth Normal Respiratory Pattern Normal Blood Pressure 134/90 H Blood Pressure Mean 104 Blood Pressure Source Monitor Blood Pressure Position Supine Blood Pressure Location Right Arm Pulse Ox 94 Oxygen Delivery Method Room Air Room Air 09/27/21 08:23 Temperature Temperature Source Pulse Rate Pulse Strength Normal (2+) Respiratory Rate Respiratory Effort Respiratory Depth Respiratory Pattern Blood Pressure Blood Pressure Mean Blood Pressure Source Blood Pressure Position Blood Pressure Location Pulse Ox Oxygen Delivery Method Weight Weight: 115.9 kg Body Mass Index (BMI) 38.7 Physical Exam Const oriented x3 Constitutional Narrative: does not appear septic Resp normal respiratory effort Auscultation: Negative for rales or wheezes Cardio regular rate GI GI Narrative: abdomen is soft/obese/benign, generalized tenderness to palpation but no peritoneal signs Extremity no clubbing, cyanosis or edema Results Medical Records Data Attestation: I reviewed the patient's medical records Lab / Micro Data Attestation: I reviewed the patient's lab results. Result Diagrams: 09/26/21 16:10 09/26/21 16:10 Labs: Laboratory Results - last 24 hr 09/26/21 16:10: WBC 11.7 H, RBC 5.18, Hgb 16.0, Hct 46.6, MCV 90.0, MCH 30.9, MCHC 34.3, RDW Std Deviation 41.4, RDW Coeff of Judi 12.4, Plt Count 456 H, MPV 8.9, Immature Gran % (Auto) 0.500, Neut % (Auto) 72.7 H, Lymph % (Auto) 16.9 L, [place] % (Auto) 8.9, Eos % (Auto) 0.7, Baso % (Auto) 0.3, Absolute Neuts (auto) 8.5 H, Absolute Lymphs (auto) 1.98, Nucleated RBC % 0 09/26/21 16:10: Sodium 137, Potassium 3.5, Chloride 102, Carbon Dioxide 29.0, Anion Gap 6, BUN 18, Creatinine 0.75, Estim Creat Clear Calc 112.73, Est GFR (MDRD) Af Amer 140, Est GFR (MDRD) Non-Af 116, BUN/Creatinine Ratio 23.9 H, Glucose 129 H, Calcium 8.9, Total Bilirubin 0.90, Direct Bilirubin 0.46 H, AST 22, ALT 38, Alkaline Phosphatase 107, Total Protein 7.9, Albumin 2.9 L, Globulin 5.0 H, Lipase 79 Radiology Impression Abdomen/Pelvis CT 09/26/21 15:39 IMPRESSION: Findings consistent with nonspecific colitis involving the transverse colon with proximal bowel distention possibly representing proximal obstruction. This also could represent spasm in association with ileus. Clinical correlation recommended There is also a questionable infected hematoma or evolving abscess within the anterior pelvic wall fat just cephalad to small fat-containing umbilical hernia. Clinical correlation recommended Electronically Signed: Matteo Banuelos MD at 18:44 EDT , Assessment & Plan Assessment/Plan (1) Generalized abdominal pain: PLAN: Patient is admitted for generalized abdominal pain. He is found to have abnormal CT scan findings, possible abscess will empirically treat with IV hydration, bowel rest, IV antibiotics, pain control - observation in hospital I doubt any surgical intervention is required at this point. continue present therapy Discussed above with patient, he acknowledges this. (2) Abnormal CT scan, gastrointestinal tract: PLAN: see layla
[2021-09-27 10:00] VITALS: BP 142/90; PULSE 71; RESP 16; TEMP 36.3; O2SAT 94
[2021-09-27] MEDS: HYDROcodone Bitartrate/Apap 5/325 Tablet PO ×2 (14:54→21:43)
[2021-09-27 16:02] VITALS: BP 134/85; PULSE 82; RESP 16; TEMP 36.4; O2SAT 95
[2021-09-27 21:40] VITALS: BP 166/92; PULSE 82; RESP 18; TEMP 37.1; O2SAT 95
[2021-09-28 04:00] VITALS: BP 133/92; PULSE 75; RESP 18; TEMP 36.6; O2SAT 95
[2021-09-28] MEDS: Ketorolac 15 MG/ML Vial IV (04:37)
[2021-09-28] MEDS: HYDROcodone Bitartrate/Apap 5/325 Tablet PO (04:42)
--- NOTE | 2021-09-28 07:55 | PCM.PN.SRG ---
Subjective Subjective patient feeling improved, rates pain as around 2 out of 10, periumbilical feels hungry passing flatus and small bowel movements Objective Data Objective Data Vital Signs: Vital Signs Temp Pulse Resp BP Pulse Ox O2 Del Method 97.8 F 75 18 133/92 H 95 Room Air 09/28/21 04:00 09/28/21 04:00 09/28/21 04:00 09/28/21 04:00 09/28/21 04:00 09/28/21 04:00 Oxygen Delivery Method Room Air Weight: 115.9 kg Body Mass Index (BMI) 38.7 Intake & Output: Intake and Output for Last 24 Hours 09/26/21 09/27/21 09/28/21 23:59 23:59 23:59 Intake Total 945 / 945 2529.16 / 2529.16 414.58 / 414.58 Balance 945 / 945 2529.16 / 2529.16 414.58 / 414.58 Lab / Micro Data Attestation: I reviewed the patient's lab results. Result Diagrams: 09/26/21 16:10 09/26/21 16:10 Radiography Diagnostic Testing: Radiology Impression KUB X-Ray 09/27/21 05:30 IMPRESSION: Persistent dilated small bowel loops with interval passage of oral contrast into the descending colon, likely partial bowel obstruction. Electronically Signed: Jana Shore MD at 9:43 EDT , Physical Exam Const alert and oriented x3 General Appearance: cooperative HEENT normocephalic Neck supple Resp normal respiratory effort Effort and Inspection: able to speak in complete sentences GI GI Narrative: soft, benign and obese - periumbilical tenderness to deep palpation but no peritoneal signs Assessment & Plan Assessment/Plan (1) Abnormal CT scan, gastrointestinal tract: PLAN: see below (2) Generalized abdominal pain: PLAN: will start regular diet then discharge to home on pain medications and antibiotics patient has a GI appointment tomorrow
--- NOTE | 2021-09-28 08:45 | DCINST_ITS ---
Discharge Instructions Follow Up Care Test Results: Test results from this visit will be discussed in further detail at your follow- up appointment, if applicable. Discharge Plan Admission Admit Date/Time: 09/26/21 19:35 Attending Provider: Yani Aldrich Primary Care Provider: Matteo Chavez Instructions Additional Instructions / Restrictions: Recommended pain control regimen - May take 600 mg ibuprofen (Motrin) and then in 3-4 hours, may take 650 mg acetaminophen (Tylenol), then in 3-4 hours may take 600 mg ibuprofen, then in 3- 4 hours may take 650 mg acetaminophen and so on for 2-3 days May take narcotic pain medication for pain that is not controlled by above and at night for comfort through the night You are also prescribed an antibiotic for 5 days, please complete this. Drink plenty of fluids (water is best), avoid carbonated beverages for a couple of days as this may cause bloating and worsen your abdominal pain If any questions, please call my office at and ask the straightening machine operator for the general surgery nurses desk Discharge Orders/Prescriptions Prescriptions: New hydrocodone-acetaminophen 5-325 mg tablet 1 tab PO Q8H 3 Days Qty: 9 0RF amoxicillin-pot clavulanate [Augmentin] 500-125 mg tablet 1 tab PO Q8H Qty: 15 0RF No Action aspirin 81 mg tablet,chewable 81 mg PO DAILY tramadol [Ultram] 50 mg tablet 50 mg PO Q6H PRN (Reason: pain) Qty: 10 0RF naproxen 500 mg tablet 500 mg PO BID PRN (Reason: Pain) Label Comments: take 1 tablet by mouth twice a day NEEDED FOR PAIN / inflammation take with food Referrals / Follow Up: Matteo Chavez MD [Primary Care Provider] - Disposition Discharge Orders: Discharge Patient (Routine); Ordered 09/28/21 Ordered By: Dr. Yani Aldrich
--- NOTE | 2021-09-28 09:40 | CASEMGMT ---
Addendum entered by Charlene Hayden 09/28/21 10:10: TC to Dina DEL REAL's office and spoke with Bekah, she is aware records will be faxed per pt request. Faxed at this time to [phone]. Original Note: LULU NOLASCO Assessment: Face to Face with pt for initial transition planning/care coordination assessment. LULU NOLASCO introduced self and role at [facility], pt voices understanding and consents to assessment. Pt is A/O x4 and answers all questions appropriately at this time. Pt lying in bed in no distress. Care providers, pharmacy, and demographics verified/updated. Admitting Dx: abdominal pain, abn CT scan PCP:[facility] Specialists:Pt states he has an appt tomorrow with Dr.Kristen Gilmore in [facility] through [facility]. He requests LULU NOLASCO fax his records to her. Preferred Pharmacy: [facility] Insurance: [facility] community Plan Prescription Benefit: yes LW/HPOA: Pt denies having a LW/DPOA and denies need for info regarding AD. LNOK: Bernice Hutton, sig other Living Arrangements: Pt lives with sig other and son and dtr in a single story house with a few steps to enter. Pt reports he is I in ADL's and denies concerns at home. Transportation: Pt drives self and denies concerns with transportation. DME/HHC/SNF: Pt denies having any DME in the home, previous HHC or SNF stays. Pt states no concerns with going home at time of dc. Pt states no further concerns/needs. CM to follow. Advised pt to ask CM if any further question/concerns/needs arise, voices understanding. Pt Goal: Home Plan: Home
== END 2021-09-28 10:02 | disposition home or self-care (01) | DRG 383 ==
LOC: ED 15:41 → MS3 19:53
PROVIDERS: Admitting Provider Surgery; Emergency Provider Emergency Medicine; PCP Family Medicine; Visit Provider Surgery
DX: L02.211 Cutaneous abscess of abdominal wall (principal); F17.210 Nicotine dependence, cigarettes, uncomplicated; R10.84 Generalized abdominal pain; R93.3 Abnormal findings on diagnostic imaging of other parts of digestive tract; Z79.82 Long term (current) use of aspirin
CPT/HCPCS: 74018; 74177; 80048; 80076; 83690; 85025; 99284; 99406; J7030; Q9967; J2405

== ENCOUNTER 2022-08-02 00:52 | Emergency (ER) | payer MEDICAID, SELFPAY ==
[2022-08-02 00:54] VITALS: BP 130/85; PULSE 83; RESP 22; TEMP 36.9; O2SAT 97; BMI 41.5
--- NOTE | 2022-08-02 01:04 | EX.ED.GENINJ ---
HPI History of Present Illness Chief Complaint: Fall Informant: patient Narrative Narrative: Mechanical fall 2 evenings ago walking up steps. Had a large metal cup that crushed between his hand and his ribs. No head injuries. Takes baby aspirin. Pain with deep breaths. Right hand swelling and pain. History of arm fracture, as follows [facility] in the past. Has been using naproxen. Prior similar symptoms: No PFSH PFSH Medical History Abnormal CT scan, gastrointestinal tract Crohn disease Generalized abdominal pain Hypertension Kidney stone Smoker Home Medications aspirin 81 mg chewable tablet 81 mg PO DAILY 02/16/18 [History Last Taken Unknown] amlodipine 5 mg tablet 5 mg PO DAILY 08/02/22 [History Last Taken Unknown] cyclobenzaprine 10 mg tablet 10 mg PO TID PRN PRN ABDOMINAL CRAMPING 08/02/22 [History Last Taken Unknown] hydrocodone-acetaminophen 5-325mg 5mg-325mg 1 tab PO Q6H PRN PRN Pain 3 days #12 TABLETS 08/02/22 [Rx Last Taken Unknown] lisinopril 10 mg tablet 10 mg PO DAILY 08/02/22 [History Last Taken Unknown] Allergy/AdvReac Type Severity Reaction Status Date / Time No Known Allergies Allergy Verified 09/26/21 15:16 Surgical History History of mandibular surgery History of surgery on arm Social History Smoking Status: Current every day smoker tobacco type: cigarettes alcohol intake: never ROS ROS ED Constitutional Constitutional ED: Denies chills, fever(s) or sweats Eyes Eyes: Denies change in vision ENT ENT ED: Denies dysphagia or sore throat Cardiovascular Cardiovascular: Denies chest pain, leg edema, palpitations or racing heartbeat Respiratory/Chest Respiratory/Chest: Reports dyspnea; Denies cough or dyspnea on exertion Gastrointestinal Gastrointestinal: Denies abdominal pain, diarrhea, nausea or vomiting Genitourinary Genitourinary ED: Denies dysuria, hematuria or urinary frequency Musculoskeletal Musculoskeletal: Reports extremity pain and other Details: Right rib pain, right hand pain ; Denies back pain or neck pain Integumentary Denies rash or wounds Neurologic Neurologic: Denies headache(s), paresthesias or weakness EXAM Physical Exam Const Vital Signs: 08/02/22 00:54 06/19/23 00:59 Temperature 98.4 F Temperature Source Oral Pulse Rate 83 Respiratory Rate 22 H Respiratory Effort Normal Non-Labored Respiratory Depth Normal Respiratory Pattern Normal Blood Pressure 130/85 H Blood Pressure Mean 100 Pulse Ox 97 Oxygen Delivery Method Room Air Room Air Positive well nourished and well developed Constitutional Narrative: GCS 15 General Appearance ED: well developed and NAD HEENT Reports moist mucous membranes normocephalic and atraumatic Eyes PERRL, EOMs intact bilaterally and conjunctivae normal General Eye ED: Yes normal appearance of both eyes Neck no lymphadenopathy and supple General: Negative for tenderness Chest Wall Chest Narrative: Tender right anterior and lateral chest wall. No crepitus. No ecchymosis. Chest: Negative for tenderness Resp normal respiratory effort and normal air movement Resp Narrative: Symmetric breath sounds Effort and Inspection: symmetric chest movement; Negative for respiratory distress Cardio regular rate, regular rhythm and no murmurs Peripheral Pulses: pulses 2+ throughout GI normal to inspection, nondistended, normoactive bowel sounds and non-tender Palpation: Negative for guarding or rebound tenderness present Back/Spine no CVA tenderness and no thoracic nor lumbar tenderness Extremity Extremity Narrative: Right upper extremity: No wrist elbow tenderness. Tender mid third and fourth metacarpals no deformities, swelling noted. There are some ecchymosis on the palmar aspect of the hand. Skin intact. General Extremety ED: Negative for edema or tenderness General Extremity: Negative for edema Neuro oriented x3, CN's II-XII intact bilaterally and no sensory deficits noted Sensorium / Orientation: awake and alert Skin Skin Narrative: See above MDM MDM MDM Narrative Medical decision making narrative: Interventions / MDM: Differential diagnosis: Hand contusion, hand fracture, rib contusion, rib fracture. Diagnosis considered but do not suspect: Pneumothorax, negative x-ray findings. My EKG interpretation: N/A Imaging independently reviewed and interpreted by myself: Right ribs with PA chest: No pneumothorax, no fractures. Also read by radiology. Right hand 3 views: Initial interpretation by myself no clear fractures, however radiology interpretation concerns for base fracture fourth metacarpal. External documents reviewed: N/A Test considered but not ordered:N/A ED course: Patient drove himself here therefore will hold off on any opioids. Mechanical fall rib and right hand injury. X-rays obtained. Initial review by myself no clear fractures. Incentive spirometry sent with patient meds to bed with [place] written. He was given follow with his PCP. Reviewing his records does have history of Crohn's therefore recommend avoiding NSAIDs and using acetaminophen. Re-evaluation: stable After discharge final read per radiology concerns for base fourth metacarpal fracture. Called discussed with the patient. He is brought back for splinting. AP splint was placed and he is followed by orthopedics Dr. Guajardo for which he will call for follow-up. Splinting: Nylon dressing, Kerlix dressing. 4 inch plaster AP short arm splint was placed in a neutral position. Berry wrap to secure. Neuro vas intact post splinting. Disposition discussed with patient/family/significant other: Patient Case discussed with consulting clinician: N/A Radiography Diagnostic Testing: Clinical Impression(s) from Imaging Studies Ribs w/Chest X-Ray 08/02/22 01:10 IMPRESSION: No evidence of a right rib fracture. Electronically Signed: Matteo Sierra DO at 2:07 EDT , Hand X-Ray 08/02/22 01:21 IMPRESSION: Fracture of the base of the fourth metacarpal. Electronically Signed: Matteo Sierra DO at 2:05 EDT , Discharge Plan Triage Chief Complaint: Fall ED Provider: Dhruv Chester Dx/Rx/DC Orders Clinical Impression: Contusion of rib on right side, Contusion of hand, right, Fall, Hand fracture, right Instructions: Treating Hand Fractures, ED Rib Contusion or Minor Fracture Prescriptions: New hydrocodone-acetaminophen 5-325 mg tablet 1 tab PO Q6H PRN PRN (Reason: Pain) 3 Days Qty: 12 0RF No Action aspirin 81 mg tablet,chewable 81 mg PO DAILY cyclobenzaprine 10 mg tablet 10 mg PO TID PRN PRN (Reason: ABDOMINAL CRAMPING) Label Comments: Take 1 tablet by mouth three times daily as needed for muscle spasm. amlodipine 5 mg tablet 5 mg PO DAILY Label Comments: Take 1 tablet by mouth once daily. lisinopril 10 mg tablet 10 mg PO DAILY Primary Care Provider: Matteo Chavez Referrals: Rosalva Guajardo MD [Non-Staff] - 1 Week Matteo Chavez MD [[facility]] - 1 Week if not improving Activity Restrictions/Additional Instructions: Right hand fracture base of fourth metacarpal. Maintain splint. Follow-up with Dr. Guajardo. Use incentive spirometer every 2 hours while awake. Use [place] as prescribed. Avoid NSAIDs due to your Crohn's history.. May use acetaminophen. Follow-up with your doctor. Disposition Disposition: Home, Self Care Discharge Date/Time: 08/02/22 01:55
--- NOTE | 2022-08-02 01:10 | RAD_ITS ---
INDICATION: injury EXAMINATION/TECHNIQUE: X-RAY - XR Ribs Unilateral W/ PA Chest Min 3 Views COMPARISON: None. FINDINGS: SOFT TISSUES: Unremarkable. BONES: No evidence of a fracture. VISUALIZED LUNGS: Clear. No pneumothorax. VISUALIZED MEDIASTINUM: Unremarkable. RAD/Ribs Uni Min 3V w/PA Chest IMPRESSION: No evidence of a right rib fracture. Electronically Signed: Matteo Sierra DO at 2:07 EDT ,
--- NOTE | 2022-08-02 01:21 | RAD_ITS ---
INDICATION: injury EXAMINATION/TECHNIQUE: X-RAY - RIGHT XR Hand Min 3 Views COMPARISON: 01/28/2016. FINDINGS: SOFT TISSUES: Dorsal soft tissue swelling. BONES/JOINTS: Fracture of the base of the fourth metacarpal likely involving the articular surface of the carpal metacarpal joint. No dislocation. No significant degenerative changes. No erosive changes. RAD/Hand Min 3 Views IMPRESSION: Fracture of the base of the fourth metacarpal. Electronically Signed: Matteo Sierra DO at 2:05 EDT ,
== END 2022-08-02 01:55 | disposition home or self-care (01) ==
PROVIDERS: Emergency Provider Emergency Medicine; PCP Family Medicine; Visit Provider Emergency Medicine
DX: S62.314A Displaced fracture of base of fourth metacarpal bone, right hand, initial encounter for closed fracture (principal); S20.211A Contusion of right front wall of thorax, initial encounter; S60.221A Contusion of right hand, initial encounter; W23.1XXA Caught, crushed, jammed, or pinched between stationary objects, initial encounter; Y93.01 Activity, walking, marching and hiking; Y99.8 Other external cause status; I10 Essential (primary) hypertension; F17.210 Nicotine dependence, cigarettes, uncomplicated; Z79.82 Long term (current) use of aspirin; Z79.899 Other long term (current) drug therapy
CPT/HCPCS: 29125; 71101; 73130; 99282